=== PATIENT | male | born 2005 | race African-American/Black ===

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

== ENCOUNTER → 2025-06-01 16:53 | Outpatient (CLI) | payer OTHER, SELFPAY ==
--- NOTE | 2025-06-01 16:55 | DI.MRI.S_ITS ---
PROCEDURE: MR KNEE RT WO CON INDICATIONS: rule out meniscus tear r knee TECHNIQUE: Noncontrast sagittal PD fast spin echo and T2 fast spin echo with fat saturation, sagittal 3-D FLASH with fat saturation; coronal T1 spin echo and PD fast spin echo with fat saturation, and axial PD fast spin echo with fat saturation through the knee. COMPARISON: [facility], MR, MR KNEE RT WO CON, 12/30/2023, 10:27. FINDINGS: Quality: Adequate Menisci: Medial meniscus: Intact Lateral meniscus: Interval tear of the posterior root attachment with persistent meniscofemoral ligaments. Cruciate ligaments: Anterior cruciate ligament: Anterior cruciate ligament reconstruction. Ligament is heterogenous with focal linear high signal at the tibial insertion, new or worsened from prior examination. Scar tissue along the tibial insertion. Posterior cruciate ligament: Intact Collateral ligaments: Medial collateral ligament: Intact Lateral collateral ligament complex: Intact Extensor mechanism: Quadriceps tendon: Intact Patellar tendon: Intact Retinaculum: Intact Fat pads: Unremarkable Cartilage: Focal fissuring in the central trochlear groove which is deep. Bones: Focal marrow edema in the posterior aspect of the lateral tibial condyle. Fluid spaces: Joint: Physiologic fluid. Popliteal cyst: None Other: None IMPRESSION: Lateral meniscus posterior root tear. Possible partial tear of anterior cruciate ligament. Possible arthrofibrosis. Lateral tibial condyle osseous contusion. Dictated by: Jairo Pickard M.D. on 06/02/2025 at 8:33 Approved by: Jairo Pickard M.D. on 06/02/2025 at 8:44
== END ==
LOC: MRI 16:54
PROVIDERS: PCP Registered Nurse; Referring Provider Orthopaedic Surgery; Visit Provider Orthopaedic Surgery
DX: S83.281A Other tear of lateral meniscus, current injury, right knee, initial encounter (principal); S80.01XA Contusion of right knee, initial encounter; M25.561 Pain in right knee
CPT/HCPCS: 73721

== ENCOUNTER → 2025-06-09 12:31 | Outpatient (CLI) | payer OTHER, SELFPAY ==
--- NOTE | 2025-06-09 12:55 | EKG_ITS ---
[address] [address] Test Date: 2025-06-09 Pat Name: Reinaldo Eisenberg Department: [facility] Room: Gender: Male Psychologist Engineering: MATTHEW : 2005 Requested By: Order Number: [id number] Reading MD: Geoffrey Muro MD Measurements Intervals [place] Rate: 52 P: 50 [place]: 166 QRS: 39 QRSD: 92 T: 17 QT: 406 QTc: 377 Interpretive Statements Sinus bradycardia Electronically Signed On 06-09-2025 16:54:45 PDT by Geoffrey Muro MD
[2025-06-09 13:32] LABS: Add Manual Diff / Slide Review NO; Hematocrit 45.4 % (41-53); Hemoglobin 15.6 g/dL (13.5-17.5); Lymphocytes Absolute Auto 1500 /uL (1100-4500); Mean Corpuscular HGB Conc 34.5 % (30-36); Mean Corpuscular Hemoglobin 30.9 PG (26-34); Mean Corpuscular Volume 89.6 fL (80-100); Platelet Count 187 X10^3/uL (150-400)
[2025-06-09 14:09] LABS: Albumin 5.1 g/dL (3.5-5.0); Blood Urea Nitrogen 14 mg/dL (9-20); Calcium 9.6 mg/dL (8.4-10.2); Carbon Dioxide 27 mmol/L (22-32); Chloride 103 mmol/L (98-107); Estimated Glomerular Filt Rate > 60 mL/min (>60); Glucose 85 mg/dL (70-99); HEMOLYSIS < 15 (0-50); Potassium 4.1 mmol/L (3.4-5.1); Sodium 140 mmol/L (137-145)
[2025-06-09 14:14] LABS: Hemoglobin A1C% w Est Avg Glu 5.4 % (4.0-6.0)
[2025-06-09 14:16] LABS: Prealbumin 34.2 mg/dL (17.6-36.0)
[2025-06-09 15:21] LABS: Vitamin D 25 Hydroxy (D3) 23.4 ng/mL (30.0-100.0)
== END ==
PROVIDERS: PCP Registered Nurse; Referring Provider Orthopaedic Surgery; Visit Provider Orthopaedic Surgery
DX: Z01.818 Encounter for other preprocedural examination (principal); S83.261D Peripheral tear of lateral meniscus, current injury, right knee, subsequent encounter; Z98.890 Other specified postprocedural states
CPT/HCPCS: 36415; 80048; 82040; 82306; 83036; 84134; 85025; 93005; 93010; 99214

== ENCOUNTER 2025-06-17 11:34 | Day surgery (SDC) | payer OTHER, SELFPAY ==
[2025-06-16 12:10] VITALS: BMI 25.1
[2025-06-17 12:13] VITALS: BMI 29.2
[2025-06-17 12:19] VITALS: BP 132/73; PULSE 73; RESP 18; TEMP 36.8; O2SAT 100
[2025-06-17] MEDS: LACTATED RINGERS 1,000 ML 42 ML IV (12:32)
--- NOTE | 2025-06-17 13:03 | PM.PREOP ---
Pre-operative Note COVID-19 COVID-19 status: Not tested Interval Note History & Physical reviewed/Exam performed by Physician: Yes Changes to H&P: No
--- NOTE | 2025-06-17 13:37 | SUR.OPER ---
Supine on padded OR bed, head on pillow, arms secured on padded arm boards at <90 degrees abduction, legs uncrossed, safety belt at torso, tape over blanket over non operative lower legs, operative leg side with arthroscopy knee positioner. Surgeon in room at time of positioning to assist and approve final position, all pressure points padded and covered.
[2025-06-17] MEDS: SODIUM CHLORIDE IRRIG SOLUTION 6,000 ML, EPINEPHrine 6 MG IRR (13:49)
[2025-06-17 14:05] VITALS: BP 114/56; PULSE 55; RESP 16; TEMP 36.2; O2SAT 100
[2025-06-17 14:11] VITALS: BP 100/55; PULSE 56; RESP 14; TEMP 36.2; O2SAT 98
[2025-06-17 14:16] VITALS: BP 101/59; PULSE 63; RESP 13; TEMP 36.2; O2SAT 99
[2025-06-17 14:23] VITALS: BP 116/54; PULSE 63; RESP 15; TEMP 36.2; O2SAT 100
--- NOTE | 2025-06-17 14:53 | P.OP_ITS ---
Operative Date/Time/Diagnoses Date of procedure: 06/17/25 Time of procedure: 13:15 Pre-op diagnosis: Right lateral meniscus tear Post-op diagnosis: other Procedure & Clinicians Procedure: right knee medial meniscus partial menisectomy and debridement of a partial acl tear Same procedure(s) as scheduled: No Surgeon: Carmen Burleson Assisted?: Yes Staking Press Operator: Dulce Singh Anesthesia Type: General Operative Notes Findings: see below Closure Type: primary Specimen(s): none sent Applied: none Estimated Blood Loss (mL): 5 Blood products transfused: none Tourniquet time (min): 28 Procedure in detail: Preoperative diagnosis: Right lateral meniscus tear Procedure performed: 1) Right knee lateral partial menisectomy and debridement of partial acl tear Postoperative diagnosis: Right knee lateral meniscus tear and partial ACL tear Primary Surgeon: Carmen Burleson, DO Staking Press Operator:Elham Singh Anesthesia: General LMA EBL: 5 ml Tourniquet: ?28 minutes @ 250 mmHg Implants: None Indication For Surgery: ?See Pre-op H&P Examination Under Anesthesia: ROM equal to the contralateral side. Grade I Delmi Stable to varus and valgus stressing at 0 & 30 degrees. Negative pivot shift test Diagnostic Arthroscopy: Loose bodies: None Synovium: exuberant fat pad Patella cartilage: intact? Trochlear cartilage: intact? Medial femoral condyle cartilage: intact Medial tibial plateau cartilage: : intact? Medial meniscus:? Small rim of meniscus (prior debridement) ACL: graft partially torn PCL: intact Lateral femoral condyle cartilage: intact Lateral tibial plateau cartilage: Grade II chondromalacia Lateral meniscus: radial tear; root intact Procedure in Detail: The patient was met in the pre-operative hold area. Consent was verified and operative extremity was signed. The patient was brought back to the operating room. The patient was placed supine position on the operating table. A general anesthetic was administered. A well-padded tourniquet was placed on the thigh. An exam under anesthesia was performed with the above findings.? The lower extremity was then prepped and draped in the usual sterile fashion. A timeout was performed per protocol. All members of the operating team were in agreement, and we proceeded. The Esmarch was used to exsanguinate the limb and the tourniquet was inflated. An 11 blade scalpel was used to make an anterolateral arthroscopic portal. The arthroscope was introduced into the knee and the anteromedial portal was created under direct visualization using needle localization. A diagnostic arthroscopy was performed with the above-stated findings.? The lateral meniscus tear and partial ACL tear were debrided. The wounds were irrigated.? The incisions were closed with Nylon sutures. ?A sterile dressing was applied. The patient was awakened and transferred to the recovery room in stable condition. ?12 cc of 0.25% Marcaine was infiltrated at the end of the case. An delinquent tax collection assistant was utilized for positioning, and closing. Postoperative Plan: Same day discharge Weightbearing as tolerated. Remove dressing in [address]aids over incision sites. Physical therapy to start after surgery. Follow up at 2 weeks for suture removal. Complications: none Post-operative Condition: stable Disposition: PACU
== END 2025-06-17 15:20 | disposition home or self-care (01) ==
PROVIDERS: PCP Registered Nurse; Referring Provider Orthopaedic Surgery; Visit Provider Orthopaedic Surgery
PROC: (CPT 29870; principal; 2025-06-17 14:15)
DX: S83.241A Other tear of medial meniscus, current injury, right knee, initial encounter (principal); S83.511A Sprain of anterior cruciate ligament of right knee, initial encounter; M94.261 Chondromalacia, right knee
CPT/HCPCS: 29881; J0165; J0689; J1100; J2250; J2405; J2704; J3010; J7120